=== PATIENT | male | born 1985 | race Hispanic/Latino ===

== ENCOUNTER 2020-05-13 11:41 | Emergency (ER) | payer OTHER ==
[2020-05-13] MEDS ORDERED: OCTYL 2-CYANOACRYLATE 1 EACH TP ONE (11:55)
[2020-05-13] MEDS ORDERED: LIDOCAINE HCL 1% 20 ML VIAL ONE (11:57)
[2020-05-13] MEDS ORDERED: TETANUS/DIPHTHERIA TOXOID [ADULT] 0.5 ML VIAL IM ONE (11:58)
== END 2020-05-13 13:03 | disposition home or self-care (01) ==
LOC: EDH 11:41
DX: S61.214A Laceration without foreign body of right ring finger without damage to nail, initial encounter (principal); W26.8XXA Contact with other sharp object(s), not elsewhere classified, initial encounter; Y93.89 Activity, other specified; Y92.69 Other specified industrial and construction area as the place of occurrence of the external cause; Y99.8 Other external cause status
CPT/HCPCS: 12002; 73140; 90471; 90714